=== PATIENT | female | born 1950 ===

== ENCOUNTER 2024-02-29 10:21 | Emergency (ER) | payer SELFPAY ==
--- NOTE | ~2024-02-29 | XR_ITS ---
EXAMINATION: X-ray left knee CLINICAL INFORMATION: Swelling COMPARISON: None TECHNIQUE: 2 views FINDINGS: Osteopenia. Alignment is anatomic. No visible acute fracture or dislocation. Marginal spurring and chondrocalcinosis in the medial and lateral compartment. Limited evaluation of the patellofemoral compartment, with joint space loss on the lateral projection. Suspect small effusion.. Vascular calcifications. XR/XR knee LT 2V IMPRESSION: Osteopenia. No radiographically evident acute fracture or dislocation. If there is clinical concern for a radiographically occult injury, cross-sectional imaging can be obtained. Tricompartment osteoarthritis. Suspect small effusion. Electronically signed by: Darrell Madrid MD 02/29/2024 12:00 PM EDT
[2024-02-29 10:30] VITALS: BP 131/68; PULSE 96; RESP 18; TEMP 36.6; O2SAT 98; BMI 16.0
--- NOTE | 2024-02-29 12:12 | ED_ITS ---
HPI - Extremity Problem General Chief complaint: Extremity Problem Stated complaint: l knee swelling Time Seen by Provider: 02/29/24 12:21 Source: patient, RN notes reviewed and cigar wrapper tender automatic Mode of arrival: wheelchair Limitations: language barrier History of Present Illness ED Provider: Charity Jones PA-C HPI Narrative: This is a 73-year-old Bahamian-speaking female, with a history of arthritis in diabetes, who presents emergency department with complaints of left knee pain for the last 3 years. Patient states that over the last several days her pain has worsened denies any fevers or chills. No calf pain. No chest pain no shortness of breath. She has been taking gabapentin her symptoms which has provided her with some relief. She states that she uses a walker to get around her house. Does not have a primary care physician at this time as she is originally from [place] and is currently attempting to establish care here. She previously had injections in her left knee in [place]. No other complaints or concerns at this time MD Complaint: extremity pain Location: left Quality: aching Radiation: none Relieving factors: nothing Exacerbating factors: nothing Associated symptoms: denies other symptoms Related Data Previous Rx's ?Medication ?Instructions ?Recorded acetaminophen 500 mg tablet 500 mg PO Q6H PRN pain #30 tabs 02/29/24 (Tylenol Extra Strength) Allergies Allergy/AdvReac Type Severity Reaction Status Date / Time No Known Allergies Allergy Verified 02/29/24 10:32 Review of Systems Review of Systems: Yes all other systems are reviewed and are negative Physical Exam Vital Signs: Vital Signs: Last Vital Signs Temp 98 F 02/29/24 12:29 Pulse 96 02/29/24 12:29 Resp 18 02/29/24 12:29 BP 131/68 02/29/24 12:29 Pulse Ox 98 02/29/24 12:29 O2 Del Method Room Air 02/29/24 12:29 BMI result Body Mass Index 16.0 Extrem: Other: Left knee, arthritic appearing, with mild swelling, obvious effusion, diffuse tenderness throughout joint, decreased range of motion of the knee secondary to pain. No overlying erythema or warmth. No calf tenderness. Strong DP pulse. Medical Decision Making Medical Decision Making MDM Narrative: This is a 73-year-old female who presents emergency department with complaints of left knee ongoing for the last several years, worsening over the last several days. No recent trauma or injury. 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 She is residing in the [place] region would like to be specialist. Given referral to orthopedist. She has no calf pain or tenderness. No trauma to suggest any fracture. X-ray was performed, with evidence of osteopenia. She had no injury to suggest any occult fracture. Discussed findings with patient with cigar wrapper tender automatic at bedside. She was given strict return precautions. Patient stable for discharge. Differential Diagnosis Differential Diagnoses: The differential diagnosis associated with the presentation includes Knee pain, osteoarthritis, arthralgia, fracture, sprain, strain, effusion, septic arthritis-unlikely Radiology Impression Discussion of test interpretation with radiology: I have reviewed the radiologist's reading. Radiologist Impression: XR/XR knee LT 2V IMPRESSION: Osteopenia. No radiographically evident acute fracture or dislocation. If there is clinical concern for a radiographically occult injury, cross-sectional imaging can be obtained. Tricompartment osteoarthritis. Suspect small effusion. Electronically signed by: Darrell Madrid MD 02/29/2024 12:00 PM EDT RP Dictated By: Darrell Madrid MD Discharge Plan Discharge Clinical Impression: Knee pain, left, Osteopenia Patient Disposition: Home, Self-Care Instructions: Knee Pain (ED), Arthralgia (ED) Additional Instructions: You were seen in the ER for knee pain. Your xray shows osteopenia, which is a type of arthritis. Please rest, elevate, and ice/heat your knee for relief. You need to see the orthopedic team, call today to make an appointment. You may also see the [facility] for primary care management of your medications. If any new or worsening symptoms occur including but not limited to chest pain, shortness of breath, dizziness, worsening pain, please return for re-evaluation. Prescriptions: New acetaminophen [Tylenol Extra Strength] 500 mg tablet 500 mg PO Q6H PRN (Reason: pain) Qty: 30 0RF Referrals: [facility] [place] [facility] [Provider Group] Center,Count Includes [facility] [Physician] - Interventions: ED Discharge Assessment Last Done: 02/29/24 12:29 Print Language: Bahamian
[2024-02-29 12:29] VITALS: BP 131/68; PULSE 96; RESP 18; TEMP 36.6; O2SAT 98
== END 2024-02-29 13:14 | disposition home or self-care (01) ==
LOC: HO.ED 12:37
PROVIDERS: Emergency Provider Emergency Medicine
DX: M25.562 Pain in left knee (principal); M85.862 Other specified disorders of bone density and structure, left lower leg; E11.618 Type 2 diabetes mellitus with other diabetic arthropathy
CPT/HCPCS: 73560; 99282; 99283